=== PATIENT | female | born 1995 | race Caucasian/White ===

== ENCOUNTER → 2016-05-16 | Outpatient (CLI) | payer OTHER ==
--- NOTE | 2016-05-16 10:50 | DIAGNOSTIC IMAGING REPORT ---
RIGHT WRIST MIN 3 VIEWS ROUTINE CLINICAL HISTORY: Right wrist pain. Trauma. COMPARISON: None. DISCUSSION: No fractures or dislocations are visualized. IMPRESSION: No fractures identified. Electronically signed by: Lexx Arias M.D. 05/16/2016 10:49 AM Dictated Date/Time: 05/16/2016 10:48 AM
== END | disposition home or self-care (01) ==
LOC: C.RDSM 10:20
PROVIDERS: ATTEND Internal Medicine
DX: M25.531 Pain in right wrist (principal)

== ENCOUNTER → 2016-05-22 | Outpatient (CLI) | payer OTHER ==
--- NOTE | 2016-05-22 09:08 | DIAGNOSTIC IMAGING REPORT ---
MRI OF THE RIGHT WRIST WITHOUT CONTRAST CLINICAL HISTORY: Ulnar sided right wrist pain status post volleyball injury. COMPARISON STUDY: Right wrist radiographs May 16, 2016. TECHNIQUE: Utilizing 1.5 Nanci magnet and dedicated coil, multiplanar, multi echo imaging of the right wrist was performed without intravenous or intra-articular contrast. FINDINGS: There is marked marrow edema within the distal right ulna. There is linear T1 and T2 hypointense signal through the base of the ulnar styloid consistent with a nondisplaced fracture. There is moderate edema within the adjacent soft tissues. This exam is compromised by motion artifact. There is no evidence for fracture within the distal right radius or the carpal bones. There is minimal subchondral cystic change within the scaphoid and the lunate. The scaphoid is intact. There is possible slight widening of the scapholunate interval. The scapholunate ligament is suboptimally assessed on this exam but appears intact. The TFCC is suboptimally assessed on this exam but no definite tear is identified. Visualized flexor and extensor tendons are unremarkable. IMPRESSION: 1. Acute nondisplaced fracture within the base of the ulnar styloid which was occult by radiography. Marked associated marrow edema with moderate soft tissue edema. 2. Exam compromised by motion artifact. No definite tear of the TFCC identified. 3. Mild widening of the scapholunate interval which is likely chronic. Scapholunate ligament suboptimally assessed but likely intact. Electronically signed by: Urban Pepper M.D. 05/22/2016 9:06 AM Dictated Date/Time: 05/22/2016 9:00 AM
== END | disposition home or self-care (01) ==
LOC: C.MRI 07:34
PROVIDERS: ATTEND Internal Medicine
DX: S52.614A Nondisplaced fracture of right ulna styloid process, initial encounter for closed fracture (principal); X58.XXXA Exposure to other specified factors, initial encounter

== ENCOUNTER → 2016-06-05 | Outpatient (CLI) | payer OTHER ==
--- NOTE | 2016-06-05 08:53 | DIAGNOSTIC IMAGING REPORT ---
RIGHT WRIST MIN 3 VIEWS ROUTINE CLINICAL HISTORY: Right wrist pain TRAUMA COMPARISON: 05/16/2016 DISCUSSION: There is subtle irregularity of the ulnar styloid, consistent with a nondisplaced fracture. No radial fractures are visualized. IMPRESSION: Nondisplaced fracture through the base of the ulnar styloid Electronically signed by: Lexx Arias M.D. 06/05/2016 8:51 AM Dictated Date/Time: 06/05/2016 8:50 AM
== END | disposition home or self-care (01) ==
LOC: C.RDSM 08:30
PROVIDERS: ATTEND Internal Medicine
DX: S52.614A Nondisplaced fracture of right ulna styloid process, initial encounter for closed fracture (principal); X58.XXXA Exposure to other specified factors, initial encounter

== ENCOUNTER → 2016-07-06 | Outpatient (CLI) | payer OTHER | END | disposition home or self-care (01) | LOC: C.RDSM 13:11 | PROVIDERS: ATTEND Physical Medicine & Rehabilitation Sports Medicine | DX: M25.531 Pain in right wrist (principal) ==

== ENCOUNTER → 2016-09-20 | Outpatient (CLI) | payer OTHER ==
--- NOTE | 2016-09-20 11:17 | DIAGNOSTIC IMAGING REPORT ---
RIGHT WRIST MIN 3 VIEWS ROUTINE CLINICAL HISTORY: Right wrist pain status post injury. COMPARISON: Right wrist radiographs July 06, 2016. FINDINGS: Alignment of the right wrist is anatomic. There has been near complete interval healing of the fracture of the base of the ulnar styloid. This fracture is nondisplaced. No additional fractures are present. A small sclerotic lesion within the scaphoid is unchanged and is benign. IMPRESSION: No change in alignment of the fracture of the base of the ulnar styloid with near complete interval healing. Electronically signed by: Urban Pepper M.D. 09/20/2016 11:16 AM Dictated Date/Time: 09/20/2016 11:14 AM
== END | disposition home or self-care (01) ==
LOC: C.RDSM 09-18 14:39
PROVIDERS: ATTEND Internal Medicine
DX: S52.614A Nondisplaced fracture of right ulna styloid process, initial encounter for closed fracture (principal); X58.XXXA Exposure to other specified factors, initial encounter

== ENCOUNTER → 2016-11-27 | Outpatient (CLI) | payer OTHER ==
--- NOTE | 2016-11-27 12:54 | DIAGNOSTIC IMAGING REPORT ---
ULTRASOUND OF THE PELVIS CLINICAL HISTORY: Irregular menses. COMPARISON STUDY: No priors. TECHNIQUE: Real-time, grayscale, and color flow sonography of the pelvis is performed both transabdominally and endovaginally. Images are reviewed in the transverse and longitudinal planes. FINDINGS: Uterus: The uterus is normal in size and echotexture, measuring 7.7 x 3.1 x 4.9 cm. Endometrium: The endometrium is normal in appearance, and the endometrial stripe is normal in thickness measuring up to 0.6 cm. An Intrauterine device is in place. Ovaries: The ovaries are normal in size and morphology. The right ovary measures 3.2 x 2.3 x 2.6 cm and the left ovary measures 3.7 x 1.8 x 1.9 cm. Small follicles are noted bilaterally. Normal Doppler waveforms are shown within both ovaries. Pelvis: There is no free fluid in the cul-de-sac. No concerning adnexal lesion is seen. IMPRESSION: Unremarkable sonographic assessment of the pelvis noting an intrauterine device in place. Electronically signed by: Slick Uribe M.D. 11/27/2016 12:53 PM Dictated Date/Time: 11/27/2016 12:46 PM
== END | disposition home or self-care (01) ==
LOC: C.ULTR 11:50
PROVIDERS: ATTEND Internal Medicine
DX: N92.6 Irregular menstruation, unspecified (principal)